=== PATIENT | male | born 1985 | race Caucasian/White ===

== ENCOUNTER 2021-02-19 23:03 | Inpatient (IN) ==
[2021-02-19] MEDS ORDERED: PIPERACILLIN/TAZOBACTAM 3,375 MG in SODIUM CHLORIDE 0.9% 100 ML IV STA (23:25)
[2021-02-19] MEDS ORDERED: MORPHINE 2 MG/1 ML SYRINGE IV STA (23:25)
[2021-02-19] MEDS ORDERED: ONDANSETRON 4 MG/2 ML VIAL IV PRN (23:31)
[2021-02-19] MEDS: LACTATED RINGERS 1,000 ML IV SCH (23:55)
[2021-02-20 00:07] LABS: Calcium 8.9 MG/DL (8.5-10.1); Osmolality,Calculated 274.8 MOS/KG (273-304); Potassium 3.6 MMOL/L (3.5-5.1)
[2021-02-20 00:15] LABS: Basophils % 0.2 % (0.0-0.8); Hematocrit 44.1 VOL% (42.0-52.0); Hemoglobin 14.7 GM/DL (14.0-18.0); Immature Granulocytes % 0.4 %; Immature Granulocytes Absolute 0.05 #; Lymphocytes # 0.8 10*3/uL (1.4-4.0); Lymphocytes % 6.7 % (21.2-54.2); Mean Corpuscular HGB Conc 33.3 GM/DL (32-36); Mean Corpuscular Volume 86.6 FL (87-102); Mean Platelet Volume 9.1 FL (9.6-12.0); Monocytes % 4.4 % (1.7-12.7); Neutrophils % 88.3 % (38.7-73.9); Platelet Count 465 T/CUMM (130-400); Red Blood Count 5.09 MC/CUMM (3.8-5.5); Red Cell Distribution Width 12.9 % (9.3-17.3); White Blood Count 11.8 T/CUMM (4-12)
[2021-02-20] MEDS: HYDROmorphone 2 MG/1 ML VIAL IV PRN ×7 (01:14→22:39)
[2021-02-20] MEDS ORDERED: SODIUM CHLORIDE 0.9% 1,000 ML IV ONE (06:25)
[2021-02-20 06:37] LABS: Basophils % 0.1 % (0.0-0.8); Hematocrit 45.9 VOL% (42.0-52.0); Hemoglobin 15.5 GM/DL (14.0-18.0); Immature Granulocytes % 0.3 %; Immature Granulocytes Absolute 0.04 #; Lymphocytes # 0.7 10*3/uL (1.4-4.0); Lymphocytes % 5.5 % (21.2-54.2); Mean Corpuscular HGB Conc 33.8 GM/DL (32-36); Mean Corpuscular Volume 86.8 FL (87-102); Mean Platelet Volume 9.2 FL (9.6-12.0); Monocytes % 6.6 % (1.7-12.7); Neutrophils % 87.5 % (38.7-73.9); Platelet Count 458 T/CUMM (130-400); Red Blood Count 5.29 MC/CUMM (3.8-5.5); White Blood Count 12.7 T/CUMM (4-12)
[2021-02-20] MEDS ORDERED: SUCCINYLCHOLINE 200 MG/10 ML VIAL ONE (06:38)
[2021-02-20] MEDS ORDERED: MIDAZOLAM 2 MG/2 ML VIAL ONE (06:38)
[2021-02-20] MEDS ORDERED: propofoL 200 MG/20 ML VIAL IV ONE ×2 (06:38→08:05)
[2021-02-20] MEDS ORDERED: ROCURONIUM 50 MG/5 ML VIAL IV ONE (06:38)
[2021-02-20] MEDS ORDERED: fentaNYL 100 MCG/2 ML VIAL ONE ×2 (06:38→07:43)
[2021-02-20] MEDS ORDERED: ONDANSETRON 4 MG/2 ML VIAL ONE (06:38)
[2021-02-20] MEDS ORDERED: LIDOCAINE 2% 5 ML VIAL ONE (06:38)
[2021-02-20] MEDS ORDERED: DEXAMETHASONE 4 MG/1 ML VIAL ONE ×2 (06:38→07:58)
[2021-02-20 06:56] LABS: Calcium 9.1 MG/DL (8.5-10.1); Osmolality,Calculated 273.8 MOS/KG (273-304); Potassium 3.8 MMOL/L (3.5-5.1)
[2021-02-20] MEDS ORDERED: ceFAZolin 1,000 MG VIAL ONE (07:21)
[2021-02-20] MEDS ORDERED: LACTATED RINGERS 1,000 ML IV ONE (07:40)
[2021-02-20] MEDS ORDERED: NEOSTIGMINE 10 MG/10 ML VIAL ONE (07:41)
[2021-02-20] MEDS ORDERED: GLYCOPYRROLATE 0.4 MG/2 ML VIAL ONE (07:41)
[2021-02-20] MEDS ORDERED: ROPIVACAINE 0.5% 30 ML VIAL ONE (07:58)
[2021-02-20] MEDS ORDERED: BUPIVACAINE MPF 0.25% 30 ML VIAL ONE (08:04)
[2021-02-20] MEDS ORDERED: SEVOFLURANE 1 UNIT/15 MINUTE INH ONE (08:05)
[2021-02-20] MEDS ORDERED: PHENYLEPHRINE DRIP 20 MG/250 ML PREMIX IV ONE (08:39)
[2021-02-20 08:47] LABS: Bilirubin,Urine Negative (Negative); Blood, Urine Small mg/dL (Negative); Glucose,Urine (UA) Negative (Negative); Ketones,Urine Negative (Negative); Mucus,Urine Occasional /LPF (Occasional); Nitrite,Urine Negative (Negative); Protein,Urine Negative; RBC,Urine 4 /HPF (0-4); Renal Epithelial Cells,Urine Few /HPF (<1); Squamous Epithelial Cell,Urine Occasional /HPF (0-10); Urine Appearance CLEAR (Clear); Urine Color Amber (Yellow); Urine Specific Gravity 1.026 (1.001-1.035)
[2021-02-20] MEDS ORDERED: PANTOPRAZOLE 40 MG VIAL IV SCH (09:00)
[2021-02-20] MEDS: LACTATED RINGERS 1,000 ML IV SCH ×3 (09:29→22:18)
[2021-02-20] MEDS: PANTOPRAZOLE 40 MG VIAL IV SCH ×2 (09:39→20:59)
[2021-02-20] MEDS: PIPERACILLIN/TAZOBACTAM 3,375 MG in SODIUM CHLORIDE 0.9% 100 ML IV SCH ×3 (09:49→23:44)
[2021-02-20] MEDS: VANCOMYCIN INJ 1,500 MG in SODIUM CHLORIDE 0.9% 500 ML IV SCH ×2 (10:16→21:00)
[2021-02-20] MEDS: FLUCONAZOLE INJ 400 MG/200 ML PREMIX IV SCH (10:17)
[2021-02-20] MEDS: LORazepam 2 MG/1 ML VIAL IV PRN (19:00)
[2021-02-21] MEDS: HYDROmorphone 2 MG/1 ML VIAL IV PRN ×5 (04:45→21:29)
[2021-02-21] MEDS: LACTATED RINGERS 1,000 ML IV SCH ×3 (05:00→20:41)
[2021-02-21] MEDS: PIPERACILLIN/TAZOBACTAM 3,375 MG in SODIUM CHLORIDE 0.9% 100 ML IV SCH ×2 (08:25→16:08)
[2021-02-21] MEDS: PANTOPRAZOLE 40 MG VIAL IV SCH ×2 (08:25→21:04)
[2021-02-21 09:10] LABS: Basophils % 0.2 % (0.0-0.8); Hematocrit 39.5 VOL% (42.0-52.0); Immature Granulocytes % 0.7 %; Immature Granulocytes Absolute 0.11 #; Lymphocytes # 1.6 10*3/uL (1.4-4.0); Lymphocytes % 10.3 % (21.2-54.2); Mean Corpuscular HGB Conc 32.4 GM/DL (32-36); Mean Corpuscular Volume 91.4 FL (87-102); Mean Platelet Volume 9.3 FL (9.6-12.0); Monocytes % 7.7 % (1.7-12.7); Neutrophils % 81.1 % (38.7-73.9); Platelet Count 385 T/CUMM (130-400); Red Blood Count 4.32 MC/CUMM (3.8-5.5); Red Cell Distribution Width 13.4 % (9.3-17.3); White Blood Count 15.6 T/CUMM (4-12)
[2021-02-21 09:21] LABS: Hemoglobin 12.8 GM/DL (14.0-18.0)
[2021-02-21 09:43] LABS: Calcium 8.7 MG/DL (8.5-10.1); Osmolality,Calculated 273.8 MOS/KG (273-304); Potassium 4.3 MMOL/L (3.5-5.1)
[2021-02-21 09:56] LABS: Band Neutrophils 12 % (0-10); Lymphocytes 11 % (20-55); Macrocytosis Slight; Platelet Estimate Normal; Segmented Neutrophils 67 % (50-85); Total Cells Counted 100
[2021-02-21] MEDS: FLUCONAZOLE INJ 400 MG/200 ML PREMIX IV SCH (10:30)
[2021-02-21] MEDS: VANCOMYCIN INJ 1,500 MG in SODIUM CHLORIDE 0.9% 500 ML IV SCH ×2 (10:45→22:11)
[2021-02-21] MEDS ORDERED: METOPROLOL TARTRATE 5 MG/5 ML VIAL IV ONE ×3 (15:40→16:30)
[2021-02-21] MEDS: LORazepam 2 MG/1 ML VIAL IV PRN (15:50)
[2021-02-21] MEDS ORDERED: ACETAMINOPHEN 650 MG SUPP RECTAL PRN (21:51)
[2021-02-21] MEDS: METOPROLOL TARTRATE 5 MG/5 ML VIAL IV SCH (22:34)
[2021-02-22] MEDS: PIPERACILLIN/TAZOBACTAM 3,375 MG in SODIUM CHLORIDE 0.9% 100 ML IV SCH ×3 (00:49→15:55)
[2021-02-22] MEDS: HYDROmorphone 2 MG/1 ML VIAL IV PRN ×5 (01:30→23:54)
[2021-02-22] MEDS: LORazepam 2 MG/1 ML VIAL IV PRN (04:08)
[2021-02-22] MEDS: LACTATED RINGERS 1,000 ML IV SCH ×5 (04:11→23:27)
[2021-02-22] MEDS: METOPROLOL TARTRATE 5 MG/5 ML VIAL IV SCH ×5 (05:47→21:57)
[2021-02-22] MEDS: PANTOPRAZOLE 40 MG VIAL IV SCH ×2 (08:46→21:58)
[2021-02-22] MEDS ORDERED: FUROSEMIDE 40 MG/4 ML VIAL IV ONE (08:46)
[2021-02-22] MEDS: FLUCONAZOLE INJ 400 MG/200 ML PREMIX IV SCH (08:47)
[2021-02-22] MEDS: VANCOMYCIN INJ 1,500 MG in SODIUM CHLORIDE 0.9% 500 ML IV SCH ×2 (10:15→21:58)
[2021-02-23] MEDS: PIPERACILLIN/TAZOBACTAM 3,375 MG in SODIUM CHLORIDE 0.9% 100 ML IV SCH ×4 (00:21→20:21)
[2021-02-23] MEDS: HYDROmorphone 2 MG/1 ML VIAL IV PRN ×6 (03:19→21:57)
[2021-02-23] MEDS: METOPROLOL TARTRATE 5 MG/5 ML VIAL IV SCH ×4 (03:23→21:57)
[2021-02-23 04:21] LABS: Basophils % 0.2 % (0.0-0.8); Eosinophils # 0.1 10*3/uL (0.0-0.87); Eosinophils % 0.7 % (0.00-10.9); Hemoglobin 11.5 GM/DL (14.0-18.0); Immature Granulocytes Absolute 0.13 #; Lymphocytes % 14.4 % (21.2-54.2); Mean Corpuscular HGB Conc 31.9 GM/DL (32-36); Mean Corpuscular Volume 88.9 FL (87-102); Mean Platelet Volume 9.6 FL (9.6-12.0); Monocytes % 7.2 % (1.7-12.7); Neutrophils % 76.5 % (38.7-73.9); Platelet Count 393 T/CUMM (130-400); Red Blood Count 4.05 MC/CUMM (3.8-5.5); Red Cell Distribution Width 13.3 % (9.3-17.3); White Blood Count 13.5 T/CUMM (4-12)
[2021-02-23 04:41] LABS: Calcium 8.5 MG/DL (8.5-10.1); Potassium 3.4 MMOL/L (3.5-5.1)
[2021-02-23] MEDS: PANTOPRAZOLE 40 MG VIAL IV SCH ×2 (08:23→21:56)
[2021-02-23] MEDS: POTASSIUM CHLORIDE RIDER 10 MEQ/100 ML PREMIX IV SCH ×4 (08:36→14:42)
[2021-02-23] MEDS: FLUCONAZOLE INJ 400 MG/200 ML PREMIX IV SCH (08:36)
[2021-02-23] MEDS: LACTATED RINGERS 1,000 ML IV SCH (10:30)
[2021-02-23] MEDS: VANCOMYCIN INJ 1,500 MG in SODIUM CHLORIDE 0.9% 500 ML IV SCH ×2 (10:42→22:21)
[2021-02-24] MEDS: LACTATED RINGERS 1,000 ML IV SCH ×4 (01:25→12:44)
[2021-02-24] MEDS: HYDROmorphone 2 MG/1 ML VIAL IV PRN ×2 (01:43→05:43)
[2021-02-24 04:30] LABS: Basophils # 0.1 10*3/uL (0.0-0.2); Basophils % 0.4 % (0.0-0.8); Eosinophils # 0.2 10*3/uL (0.0-0.87); Eosinophils % 1.4 % (0.00-10.9); Hematocrit 35.3 VOL% (42.0-52.0); Hemoglobin 11.4 GM/DL (14.0-18.0); Immature Granulocytes % 1.3 %; Immature Granulocytes Absolute 0.16 #; Lymphocytes # 1.6 10*3/uL (1.4-4.0); Mean Corpuscular HGB Conc 32.3 GM/DL (32-36); Mean Corpuscular Volume 89.8 FL (87-102); Mean Platelet Volume 9.5 FL (9.6-12.0); Monocytes % 9.7 % (1.7-12.7); Neutrophils % 74.2 % (38.7-73.9); Platelet Count 392 T/CUMM (130-400); Red Blood Count 3.93 MC/CUMM (3.8-5.5); Red Cell Distribution Width 13.3 % (9.3-17.3); White Blood Count 12.4 T/CUMM (4-12)
[2021-02-24 04:50] LABS: Calcium 8.3 MG/DL (8.5-10.1); Osmolality,Calculated 271.8 MOS/KG (273-304); Potassium 3.5 MMOL/L (3.5-5.1)
[2021-02-24] MEDS: METOPROLOL TARTRATE 5 MG/5 ML VIAL IV SCH (05:43)
[2021-02-24] MEDS: PIPERACILLIN/TAZOBACTAM 3,375 MG in SODIUM CHLORIDE 0.9% 100 ML IV SCH ×3 (08:02→23:15)
[2021-02-24] MEDS: PANTOPRAZOLE 40 MG VIAL IV SCH (08:05)
[2021-02-24] MEDS: FLUCONAZOLE INJ 400 MG/200 ML PREMIX IV SCH (08:35)
[2021-02-24] MEDS: METOPROLOL TARTRATE 25 MG TABLET PO SCH ×2 (10:49→21:15)
[2021-02-24] MEDS: LORazepam 2 MG/1 ML VIAL IV PRN ×2 (12:24→18:16)
[2021-02-24] MEDS: PANTOPRAZOLE 40 MG TABLET PO SCH (21:15)
[2021-02-25] MEDS: LORazepam 2 MG/1 ML VIAL IV PRN (03:21)
[2021-02-25 05:49] LABS: Basophils # 0.1 10*3/uL (0.0-0.2); Basophils % 0.5 % (0.0-0.8); Eosinophils # 0.3 10*3/uL (0.0-0.87); Eosinophils % 2.5 % (0.00-10.9); Hematocrit 32.5 VOL% (42.0-52.0); Hemoglobin 10.8 GM/DL (14.0-18.0); Lymphocytes # 1.8 10*3/uL (1.4-4.0); Lymphocytes % 17.8 % (21.2-54.2); Mean Corpuscular HGB Conc 33.2 GM/DL (32-36); Mean Corpuscular Volume 89.5 FL (87-102); Mean Platelet Volume 9.7 FL (9.6-12.0); Monocytes % 9.6 % (1.7-12.7); Neutrophils % 67.6 % (38.7-73.9); Platelet Count 355 T/CUMM (130-400); Red Blood Count 3.63 MC/CUMM (3.8-5.5); Red Cell Distribution Width 13.3 % (9.3-17.3); White Blood Count 9.9 T/CUMM (4-12)
[2021-02-25 06:32] LABS: Calcium 8.6 MG/DL (8.5-10.1); Potassium 3.9 MMOL/L (3.5-5.1)
[2021-02-25] MEDS: BISACODYL 5 MG TABLET PO SCH (08:58)
[2021-02-25] MEDS: PANTOPRAZOLE 40 MG TABLET PO SCH ×2 (08:58→20:00)
[2021-02-25] MEDS: FLUCONAZOLE 200 MG TABLET PO SCH (08:58)
[2021-02-25] MEDS: METOPROLOL TARTRATE 25 MG TABLET PO SCH ×2 (08:58→20:00)
[2021-02-25] MEDS: PIPERACILLIN/TAZOBACTAM 3,375 MG in SODIUM CHLORIDE 0.9% 100 ML IV SCH ×3 (08:59→23:09)
[2021-02-25] MEDS ORDERED: ACETAMINOPHEN 500 MG TABLET PO ONE (13:55)
[2021-02-25] MEDS: ENOXAPARIN 40 MG/0.4 ML SYRINGE SUBCUT SCH (14:08)
[2021-02-25] MEDS: HYDROmorphone 2 MG/1 ML VIAL IV PRN ×3 (16:31→23:07)
[2021-02-25] MEDS: LACTATED RINGERS 1,000 ML IV SCH (19:52)
[2021-02-26] MEDS: ACETAMINOPHEN 325 MG TABLET PO PRN ×3 (00:50→18:49)
[2021-02-26] MEDS: LORazepam 2 MG/1 ML VIAL IV PRN ×4 (01:01→23:52)
[2021-02-26] MEDS: HYDROmorphone 2 MG/1 ML VIAL IV PRN ×4 (03:22→20:41)
[2021-02-26] MEDS: MORPHINE 2 MG/1 ML SYRINGE IV PRN ×3 (05:35→22:52)
[2021-02-26 06:40] LABS: Basophils # 0.1 10*3/uL (0.0-0.2); Basophils % 0.5 % (0.0-0.8); Eosinophils # 0.3 10*3/uL (0.0-0.87); Eosinophils % 2.1 % (0.00-10.9); Hematocrit 33.7 VOL% (42.0-52.0); Hemoglobin 10.8 GM/DL (14.0-18.0); Immature Granulocytes % 4.2 %; Lymphocytes # 1.7 10*3/uL (1.4-4.0); Mean Corpuscular Volume 89.6 FL (87-102); Mean Platelet Volume 9.7 FL (9.6-12.0); Monocytes % 8.8 % (1.7-12.7); Neutrophils % 70.4 % (38.7-73.9); Platelet Count 436 T/CUMM (130-400); Red Blood Count 3.76 MC/CUMM (3.8-5.5); Red Cell Distribution Width 13.5 % (9.3-17.3); White Blood Count 11.9 T/CUMM (4-12)
[2021-02-26 06:58] LABS: Calcium 8.7 MG/DL (8.5-10.1); Osmolality,Calculated 271.8 MOS/KG (273-304); Potassium 3.4 MMOL/L (3.5-5.1)
[2021-02-26] MEDS: PIPERACILLIN/TAZOBACTAM 3,375 MG in SODIUM CHLORIDE 0.9% 100 ML IV SCH (07:09)
[2021-02-26] MEDS ORDERED: CEFEPIME 2,000 MG in SODIUM CHLORIDE 0.9% 100 ML IV SCH (09:30)
[2021-02-26] MEDS ORDERED: MORPHINE 2 MG/1 ML SYRINGE IV ONE (09:30)
[2021-02-26] MEDS ORDERED: POTASSIUM CHLORIDE 20 MEQ TABLET PO ONE (09:30)
[2021-02-26] MEDS: PANTOPRAZOLE 40 MG TABLET PO SCH ×2 (10:07→20:40)
[2021-02-26] MEDS: BISACODYL 5 MG TABLET PO SCH (10:07)
[2021-02-26] MEDS: FLUCONAZOLE 200 MG TABLET PO SCH (10:07)
[2021-02-26] MEDS: METOPROLOL TARTRATE 25 MG TABLET PO SCH ×2 (10:07→20:40)
[2021-02-26] MEDS: VANCOMYCIN INJ 1,500 MG in SODIUM CHLORIDE 0.9% 500 ML IV SCH ×2 (10:24→20:38)
[2021-02-26] MEDS: metroNIDAZOLE INJ 500 MG/100 ML PREMIX IV SCH ×2 (14:21→19:22)
[2021-02-26] MEDS: ENOXAPARIN 40 MG/0.4 ML SYRINGE SUBCUT SCH (16:06)
[2021-02-26] MEDS: CEFEPIME 1,000 MG in SODIUM CHLORIDE 0.9% 100 ML IV SCH ×2 (17:24→23:22)
[2021-02-27] MEDS: HYDROmorphone 2 MG/1 ML VIAL IV PRN ×4 (00:52→18:31)
[2021-02-27] MEDS: MORPHINE 2 MG/1 ML SYRINGE IV PRN ×4 (03:05→20:51)
[2021-02-27] MEDS: metroNIDAZOLE INJ 500 MG/100 ML PREMIX IV SCH ×3 (03:07→22:15)
[2021-02-27] MEDS: CEFEPIME 1,000 MG in SODIUM CHLORIDE 0.9% 100 ML IV SCH ×3 (04:11→20:53)
[2021-02-27] MEDS: LORazepam 2 MG/1 ML VIAL IV PRN ×3 (05:54→22:34)
[2021-02-27 06:38] LABS: Basophils # 0.1 10*3/uL (0.0-0.2); Basophils % 0.4 % (0.0-0.8); Eosinophils # 0.3 10*3/uL (0.0-0.87); Eosinophils % 2.2 % (0.00-10.9); Hematocrit 33.7 VOL% (42.0-52.0); Hemoglobin 10.6 GM/DL (14.0-18.0); Immature Granulocytes % 4.4 %; Immature Granulocytes Absolute 0.56 #; Lymphocytes # 2.1 10*3/uL (1.4-4.0); Lymphocytes % 16.3 % (21.2-54.2); Mean Corpuscular HGB Conc 31.5 GM/DL (32-36); Mean Corpuscular Volume 89.6 FL (87-102); Mean Platelet Volume 9.4 FL (9.6-12.0); Monocytes % 7.1 % (1.7-12.7); Neutrophils % 69.6 % (38.7-73.9); Platelet Count 458 T/CUMM (130-400); Red Blood Count 3.76 MC/CUMM (3.8-5.5); Red Cell Distribution Width 13.5 % (9.3-17.3); White Blood Count 12.6 T/CUMM (4-12)
[2021-02-27 07:01] LABS: Calcium 8.7 MG/DL (8.5-10.1); Potassium 3.7 MMOL/L (3.5-5.1)
[2021-02-27 07:02] LABS: Band Neutrophils 1 % (0-10); Eosinophils 6 % (0-10); Hypochromasia 1+; Lymphocytes 17 % (20-55); Microcytosis 1+; Platelet Estimate Adequate; Segmented Neutrophils 69 % (50-85); Total Cells Counted 100
[2021-02-27] MEDS: PANTOPRAZOLE 40 MG TABLET PO SCH ×2 (08:02→20:53)
[2021-02-27] MEDS: METOPROLOL TARTRATE 25 MG TABLET PO SCH ×2 (08:02→20:53)
[2021-02-27] MEDS: BISACODYL 5 MG TABLET PO SCH (08:02)
[2021-02-27] MEDS: FLUCONAZOLE 200 MG TABLET PO SCH (08:02)
[2021-02-27 08:49] LABS: INR 1.1; PT Patient Result 12.2 SECS (10.5-12.0)
[2021-02-27] MEDS ORDERED: DIAZEPAM 5 MG TABLET PO ONE (11:28)
[2021-02-27] MEDS: ENOXAPARIN 40 MG/0.4 ML SYRINGE SUBCUT SCH (13:38)
[2021-02-27] MEDS: VANCOMYCIN INJ 1,500 MG in SODIUM CHLORIDE 0.9% 500 ML IV SCH (13:45)
[2021-02-27] MEDS: ACETAMINOPHEN 325 MG TABLET PO PRN (20:53)
[2021-02-28] MEDS: HYDROmorphone 2 MG/1 ML VIAL IV PRN ×4 (00:28→23:16)
[2021-02-28] MEDS: VANCOMYCIN INJ 1,500 MG in SODIUM CHLORIDE 0.9% 500 ML IV SCH ×2 (00:32→13:02)
[2021-02-28] MEDS: MORPHINE 2 MG/1 ML SYRINGE IV PRN ×5 (02:08→17:05)
[2021-02-28] MEDS: CEFEPIME 1,000 MG in SODIUM CHLORIDE 0.9% 100 ML IV SCH ×4 (02:57→21:02)
[2021-02-28] MEDS: metroNIDAZOLE INJ 500 MG/100 ML PREMIX IV SCH ×3 (04:12→19:16)
[2021-02-28 06:17] LABS: Basophils # 0.1 10*3/uL (0.0-0.2); Basophils % 0.5 % (0.0-0.8); Eosinophils # 0.3 10*3/uL (0.0-0.87); Eosinophils % 2.1 % (0.00-10.9); Hematocrit 33.9 VOL% (42.0-52.0); Hemoglobin 10.7 GM/DL (14.0-18.0); Immature Granulocytes % 3.4 %; Immature Granulocytes Absolute 0.43 #; Lymphocytes # 2.1 10*3/uL (1.4-4.0); Lymphocytes % 16.7 % (21.2-54.2); Mean Corpuscular HGB Conc 31.6 GM/DL (32-36); Mean Corpuscular Volume 89.7 FL (87-102); Mean Platelet Volume 9.5 FL (9.6-12.0); Monocytes % 6.8 % (1.7-12.7); Neutrophils % 70.5 % (38.7-73.9); Platelet Count 509 T/CUMM (130-400); Red Blood Count 3.78 MC/CUMM (3.8-5.5); Red Cell Distribution Width 13.5 % (9.3-17.3); White Blood Count 12.6 T/CUMM (4-12)
[2021-02-28 06:32] LABS: Calcium 8.3 MG/DL (8.5-10.1); Osmolality,Calculated 273.7 MOS/KG (273-304); Potassium 3.9 MMOL/L (3.5-5.1)
[2021-02-28] MEDS: FLUCONAZOLE 200 MG TABLET PO SCH (09:27)
[2021-02-28] MEDS: BISACODYL 5 MG TABLET PO SCH (09:27)
[2021-02-28] MEDS: PANTOPRAZOLE 40 MG TABLET PO SCH ×2 (09:27→20:04)
[2021-02-28] MEDS: ENOXAPARIN 40 MG/0.4 ML SYRINGE SUBCUT SCH (13:33)
[2021-02-28] MEDS: METOPROLOL TARTRATE 25 MG TABLET PO SCH ×2 (13:33→20:04)
[2021-02-28] MEDS ORDERED: MAGNESIUM CITRATE 300 ML BOTTLE PO ONE (14:25)
[2021-02-28] MEDS ORDERED: BISACODYL 10 MG SUPP RECTAL ONE (14:25)
[2021-02-28] MEDS: ACETAMINOPHEN 325 MG TABLET PO PRN (21:59)
[2021-03-01] MEDS: VANCOMYCIN INJ 1,500 MG in SODIUM CHLORIDE 0.9% 500 ML IV SCH (00:38)
[2021-03-01] MEDS: MORPHINE 2 MG/1 ML SYRINGE IV PRN ×3 (01:28→10:56)
[2021-03-01] MEDS: CEFEPIME 1,000 MG in SODIUM CHLORIDE 0.9% 100 ML IV SCH ×2 (03:10→08:53)
[2021-03-01] MEDS: metroNIDAZOLE INJ 500 MG/100 ML PREMIX IV SCH (04:04)
[2021-03-01] MEDS: HYDROmorphone 2 MG/1 ML VIAL IV PRN (04:05)
[2021-03-01 06:53] LABS: Basophils # 0.1 10*3/uL (0.0-0.2); Basophils % 0.5 % (0.0-0.8); Eosinophils # 0.3 10*3/uL (0.0-0.87); Eosinophils % 2.3 % (0.00-10.9); Hematocrit 34.1 VOL% (42.0-52.0); Hemoglobin 10.8 GM/DL (14.0-18.0); Immature Granulocytes % 3.8 %; Immature Granulocytes Absolute 0.49 #; Lymphocytes # 2.1 10*3/uL (1.4-4.0); Mean Corpuscular HGB Conc 31.7 GM/DL (32-36); Mean Corpuscular Volume 89.7 FL (87-102); Mean Platelet Volume 9.4 FL (9.6-12.0); Monocytes % 6.5 % (1.7-12.7); Neutrophils % 70.9 % (38.7-73.9); Platelet Count 561 T/CUMM (130-400); Red Cell Distribution Width 13.3 % (9.3-17.3); White Blood Count 12.9 T/CUMM (4-12)
[2021-03-01 07:18] LABS: Calcium 8.2 MG/DL (8.5-10.1); Osmolality,Calculated 277.4 MOS/KG (273-304); Potassium 3.4 MMOL/L (3.5-5.1)
[2021-03-01] MEDS: METOPROLOL TARTRATE 25 MG TABLET PO SCH (08:52)
[2021-03-01] MEDS: PANTOPRAZOLE 40 MG TABLET PO SCH (08:52)
[2021-03-01] MEDS: BISACODYL 5 MG TABLET PO SCH (08:52)
[2021-03-01] MEDS: FLUCONAZOLE 200 MG TABLET PO SCH (08:53)
[2021-03-01 11:48] VITALS: BP 160/80
== END 2021-03-01 12:45 | disposition home or self-care (01) | DRG 326 ==
LOC: EDBD → EDUNIT# → N.ED 23:03 → SUATTDRO 23:31 → N.EDINP 23:31 → N.ICU 02-20 00:32 → N.3E 02-24 11:49
PROVIDERS: ADMIT Student in an Organized Health Care Education/Training Program; ATTEND Student in an Organized Health Care Education/Training Program